=== PATIENT | female | born 1975 | race Caucasian/White ===

== ENCOUNTER → 2023-12-16 10:54 | Outpatient (REF) | payer OTHER, SELFPAY | LOC: HWWDC 10:54 | PROVIDERS: ATTENDING PHYSICIAN Obstetrics & Gynecology; FAMILY PHYSICIAN Nurse Practitioner | DX: Z12.31 Encounter for screening mammogram for malignant neoplasm of breast (principal) | CPT/HCPCS: 77063; 77067 ==

== ENCOUNTER → 2024-12-18 16:15 | Outpatient (REF) | payer BC, SELFPAY | LOC: HWWDC 16:15 | PROVIDERS: ATTENDING PHYSICIAN Obstetrics & Gynecology; FAMILY PHYSICIAN Nurse Practitioner | DX: Z12.31 Encounter for screening mammogram for malignant neoplasm of breast (principal) | CPT/HCPCS: 77063; 77067 ==

== ENCOUNTER → 2025-07-09 15:37 | Outpatient (REF) | payer BC, SELFPAY | LOC: HWRAD 15:37 | PROVIDERS: ATTENDING PHYSICIAN Physician Assistant; FAMILY PHYSICIAN Nurse Practitioner | DX: J45.40 Moderate persistent asthma, uncomplicated (principal) | CPT/HCPCS: 71046 ==